=== PATIENT | female | born 1970 | race Caucasian/White ===

== ENCOUNTER 2020-01-18 04:15 | Emergency (ER) | payer SELFPAY ==
[~2020-01-18] VITALS: Ht 154.9 cm; Wt 50.8 kg
[~2020-01-18 04:15] MED LIST: ASPI-614; CYCL10TA50; GABA300C PO; TRAM50TA2 PO; TRAZ50TA66; [UNRECOGNIZED DRUG - OTHER]
[2020-01-18 04:18] VITALS: BP 114/74
--- NOTE | 2020-01-18 05:00 | NUR ---
Late entry: Patient states she is unable to provide a urine at this time. Advised patient to use the call light when she can and that a UA may take awhile to come back. When advised that the urine result may determine what our next step is, patient became angry and stated "I should have went to [facility]." Patient then stated, "Fuck this place" and proceeded to tear off her pulse ox and BP cuff. Patient stated she wanted to sign out AMA.
--- NOTE | 2020-01-18 05:09 | NUR ---
Patient refusing all interventions; signed AMA and placed in chart.
== END 2020-01-18 05:12 | disposition left against medical advice (07) ==
LOC: ED 04:45
DX: N30.01 Acute cystitis with hematuria (principal); R10.30 Lower abdominal pain, unspecified; Z88.8 Allergy status to other drugs, medicaments and biological substances
CPT/HCPCS: 99281